=== PATIENT | male | born 1960 | race African-American/Black ===

== ENCOUNTER → 2022-12-09 09:46 | Outpatient (CLI) | payer BC, SELFPAY ==
--- NOTE | ~2022-12-09 | XR_ITS ---
EXAMINATION: XR knee RT 3V DATE: 12/09/2022 10:25 INDICATION: Right knee pain and feeling like going to give out when standing from seated position TECHNIQUE: Standing AP, standing lateral and sunrise views of the right knee were obtained COMPARISON: None. FINDINGS: Alignment is normal. No fracture. Minimal joint space narrowing in the medial compartment. Tiny conrado inal osteophytes in all 3 compartments. Moderate-sized enthesophyte at the patellar insertion of the distal quadriceps tendon. No erosions. No joint effusion/layering lipohemarthrosis. Soft tissues are unremarkable. IMPRESSION: 1. 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 Reviewed, dictated and finalized at location L. DESIGN TEACHER
--- NOTE | ~2022-12-09 | DEXA_ITS ---
Bone Density Report Name: EVER STERLING Age: 62 Sex: Male Ethnicity: Black Date of : 1960 Indication: asthma or emphysema; Referring Provider: STEVEN, SUHA IGL[facility]UN[facility]AL [facility]OSPITALLuke Study: Bone densitometry was performed. Exam Date: December 09, 2022 Accession number: [id number] Bone Density: Region BMD T-score Z-score Classification AP Spine (L1-L4) 1.019 -0.7 -0.9 Normal Femoral Neck (Left) 0.907 -0.2 0.2 Normal Total Hip (Left) 0.987 -0.3 -0.3 Normal Femoral Neck (Right) 0.828 -0.7 -0.3 Normal Total Hip (Right) 0.989 -0.3 -0.3 Normal Total Hip Mean 0.988 -0.3 -0.3 Normal World Health Organization criteria for BMD impression classify patients as: Normal (T-score at or above -1.0), Osteopenia (T-score between -1.0 and -2.5), or Osteoporosis (T-score at or below -2.5). 10-year Fracture Risk: FRAX not reported because: All T-scores for Spine Total, Hip Total, Femoral Neck at or above -1.0 Clinical Information Provided by Patient: Has used the following medications: Vitamin D Has the following medical conditions: Asthma or Emphysema Patient maximum height was 71 No regular weight bearing exercise Drinks caffeinated beverages Impression: The patient has normal bone mass. Discussion: BONE DENSITY IS ABOVE THE MINIMUM DESIRABLE LEVEL AT ALL SKELETAL SITES TESTED. This patient?s bone mineral density is above the minimum desirable level (T-score -1.0 or better) at all sites measured. The patient should follow a healthful lifestyle (good nutrition with adequate calcium and vitamin D, and appropriate weight-bearing exercise). Follow-Up: Consider repeating this study in 5 years or sooner if there is some new clinical indication. Reported by: [facility] on 12/09/2022 10:09:00 AM. Reviewed, dictated and finalized at location AZia MATTHEWS
== END ==
PROVIDERS: PCP Internal Medicine; Visit Provider Internal Medicine
DX: M17.11 Unilateral primary osteoarthritis, right knee (principal); M85.9 Disorder of bone density and structure, unspecified; J45.909 Unspecified asthma, uncomplicated; J43.9 Emphysema, unspecified
CPT/HCPCS: 73562; 77080

== ENCOUNTER → 2023-12-23 11:04 | Outpatient (CLI) | payer BC, SELFPAY ==
--- NOTE | ~2023-12-23 | XR_ITS ---
Left elbow Technique: AP, oblique, and lateral views were obtained. Clinical History: Pain Findings: No acute fracture or dislocation is seen. Osseous alignment is anatomic. Joint spaces are p reserved. There is prominent enthesopathic change at the triceps tendon insertion. There is no displa cement of the fat pads, and soft tissues are otherwise unremarkable. Impression: Prominent enthesopathic change at the triceps tendon insertion. Reviewed, dictated and finalized at location M. TOLOGY NURSE EDUCATOR Impression: Prominent enthesopathic change at the triceps tendon insertion.
--- NOTE | ~2023-12-23 | XR_ITS ---
AP and lateral views of the left hip Clinical history: Pain Findings: No acute fracture or dislocation is seen. Osseous alignment is anatomic. There is moderate left hip joint degenerative change, with joint space narrowing and osteophyte formation.. Soft tissue s are unremarkable. Impression: Moderate left hip degenerative change. Reviewed, dictated and finalized at location . STAPLER Impression: Moderate left hip degenerative change.
--- NOTE | ~2023-12-23 | XR_ITS ---
EXAMINATION: XR finger 3rd RT min 2V INDICATION: Right third finger pain TECHNIQUE: Four views of the right third finger are obtained. COMPARISON: None available FINDINGS: Bone alignment is normal. There is no fracture. The joint spaces are normal. There is mild extension at the distal interphalangeal joint. IMPRESSION: 1. No acute osseous abnormality. Reviewed, dictated and finalized at location B. E SAW OPERATOR
== END ==
PROVIDERS: PCP Internal Medicine; Visit Provider Internal Medicine
DX: M25.522 Pain in left elbow (principal); M79.644 Pain in right finger(s); M25.552 Pain in left hip; M77.8 Other enthesopathies, not elsewhere classified
CPT/HCPCS: 73080; 73140; 73502